=== PATIENT | male | born 1980 | race American Indian/Alaskan Native ===

== ENCOUNTER 2021-02-15 15:47 | Emergency (ER) | payer MEDICAID, SELFPAY ==
[2021-02-15] MEDS ORDERED: LACTATED RINGERS 1,000 ML IV ONE ×2 (17:14→18:20)
--- NOTE | 2021-02-15 17:22 | Emergency Department Report ---
ED General Adult HPI - General Chief complaint: Abdominal Pain Stated complaint: ABD PAINS Time Seen by Provider: 02/15/21 17:13 Source: patient, EMS Mode of arrival: Wheelchair Limitations: No Limitations - History of Present Illness Initial comments: 41-year-old male presents complaining of constipation states that he has not been able have a bowel movement since yesterday. Also reports that he has pains in his stomach but no nausea vomiting or fever. History is difficult to obtain as he seems to be very drowsy, apparently per EMS he is homeless and they picked him up on the street and brought him in. Symptoms moderate nothing makes better or worse. When I asked when his last bowel movement was he says that it was yesterday but he feels "stopped up." He is a schizophrenic who is supposed to be on medications but does not take them though he denies any SI HI or hallucinations. Severity scale (0 -10): 5 - Related Data Previous Rx's Medication Instructions Recorded Last Taken Type OLANzapine [ZyPREXA] 15 mg PO BID #60 tablet 04/12/15 Unknown Rx OLANzapine [ZyPREXA] 15 mg PO BID #60 tablet 04/12/15 Unknown Rx Trazodone HCl [traZODone] 50 mg PO QHS #30 tablet 04/12/15 Unknown Rx risperiDONE [RisperDAL] 1 mg PO BID #60 tablet 04/12/15 Unknown Rx Allergies Allergy/AdvReac Type Severity Reaction Status Date / Time No Known Allergies Allergy Verified 11/18/13 02:58 ED Review of Systems ROS: Stated complaint: ABD PAINS Other details as noted in HPI Comment: All other systems reviewed and negative ED Past Medical Hx - Past Medical History Previous Medical History?: Yes Hx Psychiatric Treatment: Yes (patient states he's been diagnosed with schizophrenia) Additional medical history: unknown, pt refusing to answer. Patient now denies other past medical history - Surgical History Past Surgical History?: No Additional Surgical History: Denies history of surgeries - Social History Smoking Status: Never Smoker - Medications Home Medications: Home Medications Medication Instructions Recorded Confirmed Last Taken Type OLANzapine [ZyPREXA] 15 mg PO BID #60 tablet 04/12/15 Unknown Rx OLANzapine [ZyPREXA] 15 mg PO BID #60 tablet 04/12/15 Unknown Rx Trazodone HCl [traZODone] 50 mg PO QHS #30 tablet 04/12/15 Unknown Rx risperiDONE [RisperDAL] 1 mg PO BID #60 tablet 04/12/15 Unknown Rx ED Physical Exam - General Limitations: No Limitations General appearance: alert, other (Unkempt) - Head Head exam: Present: atraumatic, normocephalic - Eye Eye exam: Present: normal appearance - ENT ENT exam: Present: mucous membranes moist - Neck Neck exam: Present: normal inspection - Respiratory Respiratory exam: Present: normal lung sounds bilaterally. Absent: respiratory distress - Cardiovascular Cardiovascular Exam: Present: regular rate, normal rhythm. Absent: systolic murmur, diastolic murmur, rubs, gallop - GI/Abdominal GI/Abdominal exam: Present: soft, normal bowel sounds. Absent: distended, tenderness, guarding, rebound - Rectal Rectal exam: Present: deferred - Extremities Exam Extremities exam: Present: normal inspection - Back Exam Back exam: Present: normal inspection - Neurological Exam Neurological exam: Present: alert, oriented X3 - Psychiatric Psychiatric exam: Present: normal affect, normal mood - Skin Skin exam: Present: warm, dry, intact, normal color. Absent: rash ED Course Vital Signs 02/15/21 15:49 Temperature 98.1 F Pulse Rate 75 Respiratory 18 Rate Blood Pressure 116/71 [Right] O2 Sat by Pulse 97 Oximetry ED Medical Decision Making - Lab Data Result diagrams: 02/15/21 17:17 02/15/21 17:17 Lab Results 02/15/21 02/15/21 02/15/21 Range/Units 17:17 17:17 17:26 WBC 9.5 (4.5-11.0) K/mm3 RBC 3.76 (3.65-5.03) M/mm3 Hgb 10.5 L (11.8-15.2) gm/dl Hct 31.3 L (35.5-45.6) % MCV 83 L (84-94) fl MCH 28 (28-32) pg MCHC 34 (32-34) % RDW 13.8 (13.2-15.2) % Plt Count 308 (140-440) K/mm3 Lymph % (Auto) 19.3 (13.4-35.0) % Benson % (Auto) 14.8 H (0.0-7.3) % Eos % (Auto) 0.7 (0.0-4.3) % Baso % (Auto) 1.0 (0.0-1.8) % Lymph # (Auto) 1.8 (1.2-5.4) K/mm3 Benson # (Auto) 1.4 H (0.0-0.8) K/mm3 Eos # (Auto) 0.1 (0.0-0.4) K/mm3 Baso # (Auto) 0.1 (0.0-0.1) K/mm3 Seg Neutrophils % 64.2 (40.0-70.0) % Seg Neutrophils # 6.1 (1.8-7.7) K/mm3 Sodium 137 (137-145) mmol/L Potassium 4.1 (3.6-5.0) mmol/L Chloride 102.3 (98-107) mmol/L Carbon Dioxide 23 (22-30) mmol/L Anion Gap 16 mmol/L BUN 31 H (9-20) mg/dL Creatinine 1.0 (0.8-1.3) mg/dL Estimated GFR > 60 ml/min BUN/Creatinine Ratio 31 % Glucose 95 (75-100) mg/dL Calcium 9.3 (8.4-10.2) mg/dL Total Bilirubin 0.20 (0.1-1.2) mg/dL AST 48 H (5-40) units/L ALT 31 (7-56) units/L Alkaline Phosphatase 106 (35-129) units/L Total Creatine Kinase 752 H (55-170) units/L Total Protein 7.3 (6.3-8.2) g/dL Albumin 4.2 (3.9-5) g/dL Albumin/Globulin Ratio 1.4 % - Radiology Data Radiology results: report reviewed Nonspecific nonobstructive bowel gas pattern - Medical Decision Making Patient with history of schizophrenia presenting for evaluation of constipation which he states started yesterday but denies nausea or vomiting states that he has some pain in his stomach. He appears unkempt but has a benign exam otherwise. Differentials include constipation, rule out obstruction, dehydration. Basic labs and KUB to be obtained. Patient given IV fluid bolus. KUB shows nonspecific nonobstructive bowel gas pattern. Labs show a mild elevation in BUN at 31, creatinine normal at 1.0, white blood cell count normal. CK is elevated at 752. Patient was given 2 L of IV fluids and discharged in stable condition. Advised on outpatient primary care follow-up with return precautions given. Abdominal exam remains benign. - Differential Diagnosis constipation, sbo, dehydration Critical care attestation.: If time is entered above; I have spent that time in minutes in the direct care of this critically ill patient, excluding procedure time. ED Disposition Clinical Impression: Dehydration Disposition: DC-01 TO HOME OR SELFCARE Is pt being admited?: No Condition: Good Instructions: Dehydration, Adult Referrals: PRIMARY CAREMD [Primary Care Provider] - 3-5 Days PIERRE CRUZ MD [Staff Physician] - 3-5 Days Time of Disposition: 18:24
--- NOTE | 2021-02-15 17:43 | XRay Report ---
ABDOMEN 1 VIEW INDICATION / CLINICAL INFORMATION: Unspecified abdominal pain. COMPARISON: None available. FINDINGS: TUBES / LINES: None. BOWEL GAS PATTERN: There is nonspecific moderate gaseous distention of the colon without visualizatio n of dilated small bowel loops. Previously ingested material is noted within the stomach. FREE AIR / EXTRALUMINAL GAS: None seen. ADDITIONAL FINDINGS: No significant additional findings. IMPRESSION: Nonspecific, nonobstructive bowel gas pattern. Signer Name: Gary Andrea MD Signed: 02/15/2021 5:38 PM Workstation Name: [id number]
[2021-02-15 17:49] LABS: Basophils # (Auto) 0.1 K/mm3 (0.0-0.1); Eosinophils # (Auto) 0.1 K/mm3 (0.0-0.4); Eosinophils % (Auto) 0.7 % (0.0-4.3); Hematocrit 31.3 % (35.5-45.6); Hemoglobin 10.5 gm/dl (11.8-15.2); Lymphocytes # (Auto) 1.8 K/mm3 (1.2-5.4); Lymphocytes % (Auto) 19.3 % (13.4-35.0); Mean Corpuscular HGB Conc 34 % (32-34); Mean Corpuscular Volume 83 fl (84-94); Monocytes # (Auto) 1.4 K/mm3 (0.0-0.8); Monocytes % (Auto) 14.8 % (0.0-7.3); Platelet Count 308 K/mm3 (140-440); Red Blood Count 3.76 M/mm3 (3.65-5.03); Red Cell Distribution Width 13.8 % (13.2-15.2)
[2021-02-15 18:12] LABS: Alanine Aminotransferase 31 units/L (7-56); Albumin 4.2 g/dL (3.9-5); BUN/Creatinine Ratio 31; Blood Urea Nitrogen 31 mg/dL (9-20); Calcium 9.3 mg/dL (8.4-10.2); Hemolysis Index 16
[2021-02-15 19:34] VITALS: BP 122/78
== END 2021-02-15 19:34 | disposition home or self-care (01) ==
LOC: ED 15:47
DX: E86.0 Dehydration (principal); Z79.899 Other long term (current) drug therapy
CPT/HCPCS: 36415; 74018; 80053; 82550; 85025; 96360; 96361; 99284; J7120